=== PATIENT | female | born 1985 | race Caucasian/White ===

== ENCOUNTER 2017-04-12 21:14 | Emergency (ER) | payer BC ==
[2017-04-12 21:23] VITALS: BP 125/83; TEMP 99.6; O2SAT 94
--- NOTE | 2017-04-12 22:10 | ED.PDOC ---
History of Present Illness - General Chief Complaint: ENT Problem Stated Complaint: Sore throat, cough Time Seen by Provider: 04/12/17 21:29 Source: patient Exam Limitations: no limitations - History of Present Illness Initial Comments: The patient is a 31-year-old female presenting to the emergency room secondary to 2 days of sore throat, congestion, mild cough, runny nose, low- grade fevers, and mild body aches. No nausea vomiting or diarrhea. No back pain chest pain or shortness of breath. No altered mental status. Severity: mild Improving Factors: nothing Worsening Factors: nothing Associated Symptoms: cough, fever/chills Allergies/Adverse Reactions: Allergies NO KNOWN ALLERGY Allergy (Verified 04/12/17 21:23) Home Medications: Ambulatory Orders Clonazepam [Klonopin] 0.5 mg PO BEDTIME 04/12/17 Escitalopram Oxalate [Lexapro] 20 mg PO DAILY 04/12/17 Review of Systems - Review of Systems Constitutional: States: fever EENTM: States: nose congestion, throat pain Respiratory: States: cough Cardiology: States: no symptoms reported Gastrointestinal/Abdominal: States: no symptoms reported Genitourinary: States: no symptoms reported Musculoskeletal: States: no symptoms reported Skin: States: no symptoms reported Neurological: States: no symptoms reported Endocrine: States: no symptoms reported All other Systems: No Change from Baseline Past Medical History (General) - Patient Medical History Hx Seizures: No Hx Stroke: No Hx Dementia: No Hx Asthma: No Hx of COPD: No Hx Cardiac Disorders: No Hx Congestive Heart Failure: No Hx Pacemaker: No Hx Hypertension: No Hx Thyroid Disease: No Hx Diabetes: No Hx Gastroesophageal Reflux: No Hx Renal Disease: No Hx Cancer: No Hx of HIV: No Hx Hepatitis C: No Hx MRSA: No - Vaccination History Hx Tetanus, Diphtheria Vaccination: No Hx Influenza Vaccination: No Hx Pneumococcal Vaccination: No - Social History Hx Tobacco Use: No Hx Chewing Tobacco Use: No Hx Alcohol Use: No Hx Substance Use: No Hx Substance Use Treatment: No Hx Depression: No Hx Physical Abuse: No Hx Emotional Abuse: No Hx Suspected Abuse: No - Female History Patient is a Female of Child Bearing Age (10 -59 yrs old): Yes Patient : No Family Medical History - Family History Mother Family History: No Known Living Status: Still Living Physical Exam - Physical Exam General Appearance: Alert, Comfortable, No apparent distress Eye Exam: bilateral normal Ears, Nose, Throat: hearing grossly normal, pharyngeal erythema, other - nares red and clear rhinorrhea Neck: non-tender, full range of motion, supple Respiratory: chest non-tender, lungs clear, normal breath sounds, no respiratory distress, no accessory muscle use Cardiovascular/Chest: normal peripheral pulses, regular rate, rhythm, no edema Peripheral Pulses: radial,right: 2+, radial,left: 2+, dorsalis pedis,right: 2+, dorsalis pedis,left: 2+ Gastrointestinal/Abdominal: non tender, soft Rectal Exam: deferred Back Exam: normal inspection, no CVA tenderness Extremity: normal range of motion, non-tender, normal inspection, no pedal edema , normal capillary refill Neurologic: alert, normal mood/affect, oriented x 3 Skin Exam: normal color Comments: Vital Signs - 24 hr 04/12/17 21:22 Temperature 99.6 F Pulse Rate [ 105 H Left Radial] Respiratory 20 Rate Blood Pressure 125/83 [Left Arm] O2 Sat by Pulse 94 L Oximetry Progress - Progress Progress: 04/12/17 22:09 the patient is a 31-year-old female presenting with a cold. The sore throat appears to be due to viral source as the rapid strep is negative. She needs to keep well-hydrated. Motrin can be used to reduce discomfort. ER warnings were given. Anticipate another 2-3 days of symptoms. Departure - Departure Clinical Impression: Pharyngitis, acute Qualifiers: Pharyngitis/tonsillitis etiology: unspecified etiology Qualified Code(s): J02.9 - Acute pharyngitis, unspecified Disposition: Discharge to Home or Self Care Condition: Fair Departure Forms: ED Discharge - Pt. Copy, Patient Portal Self Enrollment Instructions: DI for Viral Pharyngitis Diet: regular diet Activity: increase activity as tolerated Referrals: Chaparrita Chavez FNP [Primary Care Provider] - 1-2 Weeks Home Medications: Ambulatory Orders Clonazepam [Klonopin] 0.5 mg PO BEDTIME 04/12/17 Escitalopram Oxalate [Lexapro] 20 mg PO DAILY 04/12/17 Additional Instructions: the patient is a 31-year-old female presenting with a cold. The sore throat appears to be due to viral source as the rapid strep is negative. She needs to keep well-hydrated. Motrin can be used to reduce discomfort. ER warnings were given. Anticipate another 2-3 days of symptoms.
== END 2017-04-12 22:14 | disposition home or self-care (01) ==
LOC: ER 21:14
DX: J02.9 Acute pharyngitis, unspecified (principal); Z79.899 Other long term (current) drug therapy

== ENCOUNTER 2017-06-28 19:46 | Emergency (ER) | payer BC ==
[2017-06-28 19:59] VITALS: BP 114/69; TEMP 99.8; O2SAT 95
--- NOTE | 2017-06-28 20:01 | ED.PDOC ---
History of Present Illness - General Chief Complaint: ENT Problem Stated Complaint: sore throat since yesterday Time Seen by Provider: 06/28/17 19:58 Source: patient, RN notes reviewed, Vital Signs reviewed Exam Limitations: no limitations - History of Present Illness Initial Comments: Patient comes in with c/o severe sore throat that started yesterday. Hurts more with swallowing. Fever to 100.3, chills, FLOWERS and nausea. Timing/Duration: gradual, yesterday Severity: moderate EENT Location: throat Prearrival Treatment: no prearrival treatment Improving Factors: nothing Worsening Factors: eating Associated Symptoms: cough, fever, malaise, poor solids intake, sore throat Allergies/Adverse Reactions: Allergies NO KNOWN ALLERGY Allergy (Verified 06/28/17 19:56) Home Medications: Ambulatory Orders Clonazepam [Klonopin] 0.5 mg PO BEDTIME 04/12/17 Escitalopram Oxalate [Lexapro] 20 mg PO DAILY 04/12/17 Azithromycin 500 mg PO DAILY #4 tab 06/28/17 Review of Systems - Review of Systems Constitutional: States: chills, fever, malaise EENTM: States: throat pain, throat swelling. Denies: ear pain, nose congestion Respiratory: States: cough. Denies: short of breath, stridor, wheezing Cardiology: States: no symptoms reported Gastrointestinal/Abdominal: States: nausea. Denies: abdominal pain, diarrhea, vomiting Musculoskeletal: States: no symptoms reported Skin: States: no symptoms reported Neurological: States: headache All other Systems: No Change from Baseline Past Medical History (General) - Patient Medical History Hx Seizures: No Hx Stroke: No Hx Dementia: No Hx Asthma: No Hx of COPD: No Hx Cardiac Disorders: No Hx Congestive Heart Failure: No Hx Pacemaker: No Hx Hypertension: No Hx Thyroid Disease: No Hx Diabetes: No Hx Gastroesophageal Reflux: No Hx Renal Disease: No Hx Cancer: No Hx of HIV: No Hx Hepatitis C: No Hx MRSA: No - Vaccination History Hx Tetanus, Diphtheria Vaccination: No Hx Influenza Vaccination: No Hx Pneumococcal Vaccination: No - Social History Hx Tobacco Use: No Hx Chewing Tobacco Use: No Hx Alcohol Use: No Hx Substance Use: No Hx Substance Use Treatment: No Hx Depression: No Hx Physical Abuse: No Hx Emotional Abuse: No Hx Suspected Abuse: No - Female History Patient : No Family Medical History - Family History Mother Family History: No Known Living Status: Still Living Physical Exam - Physical Exam General Appearance: Alert, Ill Appearing, Well Developed, Well Groomed, Well Hydrated, Well Nourished Eye Exam: bilateral normal Ear Exam: bilateral ear: auricle normal, canal normal, TM normal Throat Exam: pharynx swelling, tonsillar exudate, tonsillar swelling Neck: supple, lymphadenopathy (R), lymphadenopathy (L) Cardiovascular/Respiratory: regular rate, rhythm, no M/R/G, normal breath sounds , no respiratory distress Neurologic: alert, normal mood/affect, oriented x 3 Skin Exam: normal color, warm/dry Progress - Progress Progress: 06/28/17 20:29 Solu-Medrol 125mg IM and Zithromax 500mg PO given - Results/Orders Results/Orders: Laboratory Tests 06/28/17 19:56 Group A Strep DNA Positive Departure - Departure Clinical Impression: Streptococcal sore throat Time of Disposition: 20:30 Disposition: Discharge to Home or Self Care Condition: Good Departure Forms: ED Discharge - Pt. Copy, Patient Portal Self Enrollment Instructions: DI for Strep Throat Diet: resume usual diet Activity: increase activity as tolerated Referrals: Chaparrita Chavez NP [Primary Care Provider] - 1-2 Weeks Prescriptions: Azithromycin 500 mg PO DAILY #4 tab Home Medications: Ambulatory Orders Clonazepam [Klonopin] 0.5 mg PO BEDTIME 04/12/17 Escitalopram Oxalate [Lexapro] 20 mg PO DAILY 04/12/17 Azithromycin 500 mg PO DAILY #4 tab 06/28/17
[2017-06-28] MEDS ORDERED: AZITHROMYCIN 250 MG TAB PO ONE (20:12)
[2017-06-28] MEDS ORDERED: methylPREDNISolone SODIUM SUC 125 MG/2 ML VIAL IM ONE (20:12)
== END 2017-06-28 20:46 | disposition home or self-care (01) ==
LOC: ER 19:46
DX: J02.0 Streptococcal pharyngitis (principal)
CPT/HCPCS: 87651; J2930; Q0144

== ENCOUNTER 2017-10-21 23:23 | Emergency (ER) | payer BC ==
[2017-10-21 23:51] VITALS: O2SAT 94
--- NOTE | 2017-10-22 00:18 | ED.PDOC ---
History of Present Illness - General Chief Complaint: Fever Stated Complaint: fever, sore throat, congestion Time Seen by Provider: 10/22/17 00:02 Source: patient Exam Limitations: no limitations - History of Present Illness Initial Comments: Miranda Guallpa 32 y/o female with no chronic medical problem seem in er today with cough,nasal congestion ,achy throat for 2 days Timing/Duration: other - 2 days Severity: moderate Improving Factors: nothing Worsening Factors: nothing Associated Symptoms: denies symptoms Allergies/Adverse Reactions: Allergies NO KNOWN ALLERGY Allergy (Verified 06/28/17 19:56) Home Medications: Ambulatory Orders Clonazepam [Klonopin] 0.5 mg PO BEDTIME 04/12/17 Escitalopram Oxalate [Lexapro] 20 mg PO DAILY 04/12/17 Azithromycin 500 mg PO DAILY #4 tab 06/28/17 Review of Systems - Review of Systems Constitutional: States: no symptoms reported EENTM: States: see HPI Respiratory: States: no symptoms reported Cardiology: States: no symptoms reported Gastrointestinal/Abdominal: States: no symptoms reported All other Systems: Reviewed and Negative, No Change from Baseline Past Medical History (General) - Patient Medical History Hx Seizures: No Hx Stroke: No Hx Dementia: No Hx Asthma: No Hx of COPD: No Hx Cardiac Disorders: Yes - cardiac ablasion for SVT Hx Congestive Heart Failure: No Hx Pacemaker: No Hx Hypertension: No Hx Thyroid Disease: No Hx Diabetes: No Hx Gastroesophageal Reflux: No Hx Renal Disease: No Hx Cancer: No Hx of HIV: No Hx Hepatitis C: No Hx MRSA: No Surgical History: other - Vaccination History Hx Tetanus, Diphtheria Vaccination: No Hx Influenza Vaccination: No Hx Pneumococcal Vaccination: No - Social History Hx Tobacco Use: No Hx Chewing Tobacco Use: No Hx Alcohol Use: No Hx Substance Use: No Hx Substance Use Treatment: No Hx Depression: No Hx Physical Abuse: No Hx Emotional Abuse: No Hx Suspected Abuse: No - Female History Patient : No Family Medical History - Family History Mother Family History: No Known Living Status: Still Living Physical Exam - Physical Exam General Appearance: Alert, No apparent distress Eye Exam: bilateral normal Ears, Nose, Throat: nasal congestion Neck: full range of motion, supple Respiratory: lungs clear, normal breath sounds Cardiovascular/Chest: regular rate, rhythm, no murmur Gastrointestinal/Abdominal: non tender, soft, no organomegaly Back Exam: no vertebral tenderness, CVA tenderness (R) Extremity: no pedal edema, no calf tenderness Neurologic: alert, oriented x 3 Skin Exam: normal color, warm/dry Progress - Progress Progress: 10/22/17 00:19 Last Vital Signs Temp 100.2 F H 10/21/17 23:47 Pulse 115 H 10/21/17 23:47 Resp 22 10/21/17 23:47 BP 115/80 10/21/17 23:47 Pulse Ox 94 L 10/21/17 23:47 - Results/Orders Results/Orders: STREP and FLU A/B-negative Departure - Departure Clinical Impression: Nasopharyngitis acute Time of Disposition: 00:20 Disposition: Discharge to Home or Self Care Condition: Fair Departure Forms: ED Discharge - Pt. Copy, Patient Portal Self Enrollment Instructions: DI for Viral Upper Respiratory Infection -- Adult Referrals: Chaparrita Chavez [employer] [Primary Care Provider] - 1-2 Weeks Home Medications: Ambulatory Orders Clonazepam [Klonopin] 0.5 mg PO BEDTIME 04/12/17 Escitalopram Oxalate [Lexapro] 20 mg PO DAILY 04/12/17 Azithromycin 500 mg PO DAILY #4 tab 06/28/17 Additional Instructions: Continue with AFRIN Nose [place] 2 sprays each nose am pm 3 days on 3 days off for nasal congestion as needed May take over the counter cough cold medicine
[2017-10-22] MEDS ORDERED: OXYMETAZOLINE NASAL SPRAY 15 ML BTTL BNAS PRN (00:21)
[2017-10-22 00:45] VITALS: BP 117/62; TEMP 99.8
== END 2017-10-22 00:47 | disposition home or self-care (01) ==
LOC: ER 23:23
DX: J00 Acute nasopharyngitis [common cold] (principal)